=== PATIENT | female | born 1955 ===

== ENCOUNTER 2017-04-08 17:45 | Emergency (ER) | payer OTHER ==
--- NOTE | 2017-04-08 20:01 | ED PDOC ---
HPI: General Adult Time Seen by Provider: 04/08/17 19:13 Chief Complaint (Nursing): High Blood Pressure Chief Complaint (Provider): bodyaches History Per: Patient History/Exam Limitations: no limitations Onset/Duration Of Symptoms: Days (1) Additional Complaint(s): Woke up today with bodyaches and dizziness and nausea Reports that she feels like her muscles all achy Pt just started on simvastatin on Wednesday. She reports that she has had these symptoms in the past when she had taken simvastatin, and she restarted it to try it. PMD Dr Elmer Madden Past Medical History Reviewed: Historical Data, Nursing Documentation, Vital Signs Vital Signs: Last Vital Signs Temp 98.4 F 04/08/17 18:11 Pulse 94 H 04/08/17 18:11 Resp 20 04/08/17 18:11 BP 149/66 04/08/17 18:11 Pulse Ox 98 04/08/17 20:02 - Medical History PMH: Gastritis, HTN, Hypercholesterolemia Denies: Chronic Kidney Disease - Surgical History Surgical History: Appendectomy - Family History Family History: States: Unknown Family Hx - Social History Current smoker - smoking cessation education provided: No - Home Medications Home Medications: Ambulatory Orders Medication Instructions Recorded Omeprazole [Prilosec] 20 mg PO DAILY 03/04/15 amLODIPine [Norvasc] 5 mg PO DAILY 03/04/15 Famotidine [Pepcid] 20 mg PO Q12 #20 tab 10/19/15 Meclizine HCl [Antivert] 25 mg PO TID #15 tablet 10/19/15 - Allergies Allergies/Adverse Reactions: Allergies Allergy/AdvReac Type Severity Reaction Status Date / Time No Known Allergies Allergy Verified 04/08/17 18:11 Review of Systems ROS Statement: Except As Marked, All Systems Reviewed And Found Negative (and as per HPI) Constitutional: Positive for: Weakness, Malaise Gastrointestinal: Positive for: Nausea. Negative for: Vomiting, Abdominal Pain , Diarrhea Musculoskeletal: Positive for: Neck Pain, Shoulder Pain, Arm Pain, Leg Pain, Other (diffuse myalgias) Neurological: Negative for: Weakness, Numbness Physical Exam - Reviewed Nursing Documentation Reviewed: Yes Vital Signs Reviewed: Yes - Physical Exam Appears: Positive for: Non-toxic, In Acute Distress (tired appearing mild painful distress) Head Exam: Positive for: ATRAUMATIC, NORMOCEPHALIC Skin: Positive for: Warm, Dry Eye Exam: Positive for: EOMI, PERRL ENT: Negative for: Pharyngeal Erythema, Tonsillar Exudate Neck: Positive for: Painless ROM, Supple Cardiovascular/Chest: Positive for: Regular Rate, Rhythm, Chest Non Tender. Negative for: Murmur Respiratory: Positive for: Normal Breath Sounds. Negative for: Wheezing, Respiratory Distress Gastrointestinal/Abdominal: Positive for: Soft. Negative for: Tenderness Back: Positive for: Normal Inspection. Negative for: Decreased ROM Extremity: Positive for: Normal ROM. Negative for: Deformity Lymphatic: Negative for: Adenopathy Neurologic/Psych: Positive for: Alert. Negative for: Motor/Sensory Deficits - Laboratory Results Result Diagrams: 04/08/17 20:00 04/08/17 20:00 - ECG ECG: Positive for: Interpreted By Me ECG Rhythm: Positive for: Normal ST Segment, Sinus Rhythm O2 Sat by Pulse Oximetry: 98 Pulse Ox Interpretation: Normal - Progress ED Course And Treament: DW pt findings and plan of care. DC Simvastatin for now. Pt to talk with PMD about alternative meds. Re-evaluation Time: 22:00 Condition: Improved Disposition - Clinical Impression Clinical Impression: Myalgia, Adverse effects of medication Counseled Patient/Family Regarding: Studies Performed, Diagnosis, Need For Followup - Disposition Disposition: Routine/Home Disposition Time: 22:00 Condition: IMPROVED Additional Instructions: Desiree de gina simvastatina. Hable con bansal mdico sobre medicamentos alternativos para bansal colesterol. STOP TAKING SIMVASTATIN. TALK TO YOUR DOCTOR ABOUT ALTERNATIVE MEDICATIONS FOR YOUR CHOLESTEROL. Instructions: Musculoskeletal Pain (ED) Print Language: GREENLANDIC
[2017-04-08 20:16] LABS: BASO # 0.1 K/uL (0.0-0.2); BASO % 1.3 % (0.0-2.0); EOS # 0.1 K/uL (0.0-0.7); EOS % 0.7 % (0.0-4.0); HEMOGLOBIN 13.8 g/dL (12.0-16.0); LYMPH # 2.7 K/uL (1.0-4.3); MEAN CELL VOLUME 98.7 fl (81.0-99.0); MEAN CORPUSCULAR HEMOGLOBIN 32.7 pg (27.0-31.0); MEAN CORPUSCULAR HGB CONC 33.2 g/dL (33.0-37.0); MEAN PLATELET VOLUME 8.3 fl (7.2-11.7); MONO # 0.4 K/uL (0.0-0.8); MONO % 5.6 % (0.0-10.0); NEUT # 4.7 K/uL (1.8-7.0); NEUT % 58.4 % (50.0-75.0); RBC 4.22 Mil/uL (3.80-5.20); RED CELL DISTRIBUTION WIDTH 12.3 % (11.5-14.5)
[2017-04-08 20:43] LABS: PARTIAL THROMBOPLASTIN TIME 36.7 Seconds (25.6-37.1); PROTHROMBIN TIME 11.3 Seconds (9.8-13.1)
[2017-04-08 21:09] LABS: ALB/GLOB RATIO 1.3 (1.0-2.1); ALBUMIN 4.7 g/dL (3.5-5.0); ALT/SGPT 39 U/L (9-52); AST/SGOT 31 U/L (14-36); BLOOD UREA NITROGEN 13 mg/dl (7-17); CALCIUM 10.1 mg/dL (8.4-10.2); GFR AFRICAN-AMERICAN > 60; GFR NON-AFRICAN AMERICAN > 60; MAGNESIUM 2.2 MG/DL (1.6-2.3)
[2017-04-08 21:16] LABS: B-TYPE NATRIURETIC PEPTIDE 37.4 pg/ml (0-900)
[2017-04-08 23:02] VITALS: BP 138/78; PULSE 80; RESP 18; TEMP 98.2; O2SAT 99
--- NOTE | 2017-04-09 18:08 | CARD ---
APPROVED REPORT EKG Measurement Heart [id number] <Conclusion> Normal sinus rhythm Prolonged QT Abnormal ECG
== END 2017-04-08 22:40 | disposition home or self-care (01) ==
LOC: H.ER 17:45
DX: I10 Essential (primary) hypertension (principal); E78.00 Pure hypercholesterolemia, unspecified
CPT/HCPCS: 80053; 82550; 83735; 83880; 84100; 84484; 85025; 85610; 85730; 87804; 93005; 96374; 99283; J1885